=== PATIENT | male | born 1945 | race Caucasian/White ===

== ENCOUNTER 2020-04-07 08:53 | Day surgery (SDC) | payer BC ==
[~2020-04-07] VITALS: Ht 177.8 cm; Wt 86.4 kg
[2020-04-07] VITALS (11 sets, daily range): BP systolic 111–157; BP diastolic 51–87
[2020-04-07] MEDS ORDERED: fentaNYL/PF 50MCG/1 ML 2ML syringe ONE ×2 (09:35→10:53)
[2020-04-07] MEDS ORDERED: midazolam 2 mg/2 ml injection ONE ×3 (09:35→10:53)
[2020-04-07] MEDS ORDERED: heparin 1,000unit/ml 10ml vial 10 ML ONE (09:37)
[2020-04-07] MEDS ORDERED: iohexol 350 MG/ML 50ML vial IV ONE (09:37)
[2020-04-07] MEDS ORDERED: LIDOcaine 1% (10mg/ml)w/preservative injection 20ml MDV ONE (09:37)
[2020-04-07] MEDS ORDERED: LIDOcaine 1% 30ml preserv. free vial ONE (09:37)
[2020-04-07] MEDS ORDERED: iohexol 350MG/ML 100ml bottle IV ONE ×2 (09:37→10:51)
[2020-04-07] MEDS ORDERED: diphenhydrAMINE 25mg capsule PO PRN (09:40)
[2020-04-07] MEDS ORDERED: normal saline 1,000 ML IV SCH (09:40)
[2020-04-07] MEDS ORDERED: NITR0.4T51 SL (09:43)
[2020-04-07] MEDS ORDERED: OMEG1CAP2 (09:43)
[2020-04-07] MEDS ORDERED: MULT-1085 PO (09:43)
[2020-04-07 10:25] LABS: BASOPHILS % (AUTO) 0.8 % (0-1); EOSINOPHILS # (AUTO) 0.1 X10'3 (0-0.9); EOSINOPHILS % (AUTO) 2.5 % (0-6); HEMATOCRIT 48.3 % (42.0-52.0); HEMOGLOBIN 16.1 g/dl (14.0-17.9); LYMPHOCYTES # (AUTO) 1.6 X10'3 (1.1-4.8); LYMPHOCYTES % (AUTO) 27.5 % (21-51); MEAN CORPUSCULAR HEMOGLOBIN 31.8 PG (27.0-31.0); MEAN CORPUSCULAR HGB CONC 33.4 g/dL (33.0-36.5); MEAN CORPUSCULAR VOLUME 95.4 FL (78-98); MEAN PLATELET VOLUME 7.4 FL (7.4-10.4); MONOCYTES # (AUTO) 0.6 X10'3 (0-0.9); MONOCYTES % (AUTO) 10.3 % (2-12); NEUTROPHILS # (AUTO) 3.4 X10'3 (1.8-7.7); NEUTROPHILS % (AUTO) 58.9 % (42-75); PLATELET COUNT 232 X10'3 (140-440); RED BLOOD COUNT 5.06 X10'6 (4.70-6.10); WHITE BLOOD COUNT 5.8 X10'3 (4.5-11.0)
[2020-04-07 10:39] LABS: ALBUMIN 3.7 G/DL (3.4-5.0); ANION GAP 7 (8-16); BLOOD UREA NITROGEN 14 MG/DL (7-18); CHLORIDE 109 MMOL/L (99-107); GLUCOSE 94 MG/DL (70-104); MAGNESIUM 1.9 MG/DL (1.5-2.4); POTASSIUM 4.5 MMOL/L (3.5-5.1); SODIUM 143 MMOL/L (135-145); eGFR 73 ML/MIN
[2020-04-07] MEDS ORDERED: clopidogrel 300mg tablet ONE (11:08)
== END 2020-04-07 15:30 | disposition home or self-care (01) ==
LOC: SSTAY O 08:53
PROVIDERS: ATTEND Internal Medicine Cardiovascular Disease
DX: I25.5 Ischemic cardiomyopathy (principal); I44.7 Left bundle-branch block, unspecified; I25.2 Old myocardial infarction; I25.10 Atherosclerotic heart disease of native coronary artery without angina pectoris; I25.82 Chronic total occlusion of coronary artery; E78.5 Hyperlipidemia, unspecified; J44.9 Chronic obstructive pulmonary disease, unspecified; G47.31 Primary central sleep apnea; Z79.899 Other long term (current) drug therapy
CPT/HCPCS: 36415; 80048; 83735; 85025; 85610; 93458; 99152; 99153; C1751; C1760; C1769; C1874; C1894; C9600; C9601; J1644; J2001; J2250; J3010; Q9967; A4620